=== PATIENT | male | born 1950 | race Caucasian/White ===

== ENCOUNTER → 2016-11-03 | Outpatient (CLI) | payer MEDICARE ==
[~2016-11-03] MED LIST: ASPI81TA21 PO; BENI40TA7 PO; BYST10TA PO; CHLO4TAB PO; CIPR500T89 PO; DOXA2TAB PO; FURO40TA2 PO; KLOR8TAB PO; PERCOCET PO; TYLE-18 PO
== END ==
LOC: M SMT 09:19
PROVIDERS: ATTEND Urology
DX: Z85.46 Personal history of malignant neoplasm of prostate (principal)

== ENCOUNTER → 2017-01-04 | Outpatient (CLI) | payer MEDICARE ==
[2017-01-04 09:53] LABS: MEAN CORPUSCULAR HEMOGLOBIN 31.9 pg (27.0-33.0); MEAN CORPUSCULAR HGB CONC 34.4 g/dl (32.0-36.5); MEAN CORPUSCULAR VOLUME 92.8 fl (80.0-96.0); RED CELL DISTRIBUTION WIDTH 12.5 % (11.5-14.5); WHITE BLOOD COUNT 6.8 K/mm3 (4.0-10.0)
[2017-01-04 10:29] LABS: ALBUMIN 3.7 GM/DL (3.2-5.2); ALBUMIN/GLOBULIN RATIO 1.12 (1.00-1.93); ALKALINE PHOSPHATASE 67 U/L (45-117); ALT/SGPT 39 U/L (12-78); ANION GAP 11 MEQ/L (8-16); AST/SGOT 22 U/L (15-37); BILIRUBIN,TOTAL 0.7 MG/DL (0.2-1.0); BLOOD UREA NITROGEN 18 MG/DL (7-18); CALCIUM LEVEL 8.6 MG/DL (8.8-10.2); CARBON DIOXIDE LEVEL 28 MEQ/L (21-32); CHLORIDE LEVEL 105 MEQ/L (98-107); CHOLESTEROL LEVEL 166 MG/DL (<200); CREATININE FOR GFR 1.04 MG/DL (0.70-1.30); GLOMERULAR FILTRATION RATE > 60.0 (>49); GLUCOSE, FASTING 93 MG/DL (80-110); SODIUM LEVEL 144 MEQ/L (136-145); THYROXINE (T4) 7.8 UG/DL (4.5-12.0); TRIGLYCERIDES LEVEL 261 MG/DL (<150)
--- NOTE | 2017-01-04 11:05 | REP ---
CHEST X-RAY: Two views. HISTORY: Fatigue. Shortness of breath. Comparison chest x-ray is from November 02, 2012. FINDINGS: The lungs are slightly hyperinflated but remain free of infiltrate. Pleural angles are sharp. Heart is mildly enlarged unchanged. Pulmonary vasculature is not increased. The aorta is slightly tortuous. There are degenerative changes again noted in the thoracic spine. IMPRESSION: Mild cardiomegaly and hyperinflation. Otherwise no acute disease. Signed by Everton Brown MD 01/04/2017 01:09 P
--- NOTE | 2017-01-05 00:33 | ECGEPIP ---
Stationary ECG Study [facility] Test Date: 2017-01-04 Pat Name: TARIK REA Department: Room: - Gender: M Auto Wash Buffer: MARCO ANTONIO : 1950 Requested By: Simon Willett Order Number: [id number] Reading MD: Jama Cruz Measurements Intervals [place] Rate: 63 P: -1 CT: 166 QRS: 5 QRSD: 106 T: 43 QT: 405 QTc: 417 Interpretive Statements SINUS RHYTHM COMPARED TO THE LAST 2 TRACINGS IN THE SYSTEM, NO SIGNIFICANT CHANGES Electronically Signed On 01-05-2017 0:33:42 EDT by Jama Cruz
== END ==
LOC: M LAB 09:10
PROVIDERS: ATTEND Family Medicine
DX: I10 Essential (primary) hypertension (principal); R53.83 Other fatigue

== ENCOUNTER → 2017-04-22 | Outpatient (CLI) | payer MEDICARE | LOC: M SMT 13:23 | PROVIDERS: ATTEND Urology | DX: Z85.46 Personal history of malignant neoplasm of prostate (principal) ==

== ENCOUNTER → 2017-06-09 | Outpatient (CLI) | payer MEDICARE ==
[2017-06-09 16:29] LABS: MEAN CORPUSCULAR HEMOGLOBIN 32.3 pg (27.0-33.0); MEAN CORPUSCULAR HGB CONC 34.9 g/dl (32.0-36.5); MEAN CORPUSCULAR VOLUME 92.6 fl (80.0-96.0); RED CELL DISTRIBUTION WIDTH 12.7 % (11.5-14.5); WHITE BLOOD COUNT 7.9 K/mm3 (4.0-10.0)
[2017-06-14 00:11] LABS: Lyme Disease IgG Ab 18 kDa Ban Present (.); Lyme Disease IgG Ab 23 kDa Ban Present (.); Lyme Disease IgG Ab 28 kDa Ban Absent (.); Lyme Disease IgG Ab 30 kDa Ban Absent (.); Lyme Disease IgG Ab 39 kDa Ban Absent (.); Lyme Disease IgG Ab 41 kDa Ban Present (.); Lyme Disease IgG Ab 45 kDa Ban Present (.); Lyme Disease IgG Ab 58 kDa Ban Absent (.); Lyme Disease IgG Ab 66 kDa Ban Present (.); Lyme Disease IgG Ab 93 kDa Ban Present (.); Lyme Disease IgG West Blot Int Positive (.); Lyme Disease IgG/IgM Antibodie 1.13 ISR (0.00-0.90); Lyme Disease IgM Ab 23 kDa Ban Present (.); Lyme Disease IgM Ab 39 kDa Ban Absent (.); Lyme Disease IgM Ab 41 kDa Ban Absent (.); Lyme Disease IgM Ab Quantitati 1.28 index (0.00-0.79); Lyme Disease IgM West Blot Int Negative (.)
== END ==
LOC: M SMT 11:09
PROVIDERS: ATTEND Family Medicine
DX: E11.9 Type 2 diabetes mellitus without complications (principal); R53.83 Other fatigue; M10.9 Gout, unspecified; Z11.8 Encounter for screening for other infectious and parasitic diseases; Z12.5 Encounter for screening for malignant neoplasm of prostate
CPT/HCPCS: 36415; 83036; 84443; 84550; 85027; 85652; 86617; G0103

== ENCOUNTER → 2017-11-01 | Outpatient (CLI) | payer MEDICARE ==
[2017-11-01 20:58] LABS: PROSTATIC SPECIFIC AG MONITOR < 0.01 NG/ML (< 4.0)
== END ==
LOC: M SMT 13:11
DX: Z85.46 Personal history of malignant neoplasm of prostate (principal)
CPT/HCPCS: 84153

== ENCOUNTER → 2018-08-12 | Outpatient (CLI) | payer MEDICARE ==
[2018-08-12 08:12] LABS: HEMATOCRIT 40.3 % (42.0-52.0); HEMOGLOBIN 13.5 g/dl (13.5-17.5); MEAN CORPUSCULAR HEMOGLOBIN 31.8 pg (27.0-33.0); MEAN CORPUSCULAR HGB CONC 33.5 g/dl (32.0-36.5); PLATELET COUNT, AUTOMATED 235 10^3/uL (150-450); RED BLOOD COUNT 4.24 10^6/uL (4.30-6.10); RED CELL DISTRIBUTION WIDTH 13.8 % (11.5-14.5); WHITE BLOOD COUNT 10.3 10^3/uL (4.0-10.0)
[2018-08-12 08:29] LABS: ESTIMATED AVERAGE GLUCOSE 105 MG/DL (60-110); HEMOGLOBIN A1c 5.3 %
[2018-08-12 08:44] LABS: ALBUMIN 3.9 GM/DL (3.2-5.2); ALKALINE PHOSPHATASE 67 U/L (45-117); ALT/SGPT 24 U/L (12-78); ANION GAP 7 MEQ/L (8-16); AST/SGOT 16 U/L (7-37); BILIRUBIN,TOTAL 0.7 MG/DL (0.2-1.0); BLOOD UREA NITROGEN 20 MG/DL (7-18); CALCIUM LEVEL 8.9 MG/DL (8.8-10.2); CARBON DIOXIDE LEVEL 33 MEQ/L (21-32); CHLORIDE LEVEL 102 MEQ/L (98-107); CHOLESTEROL LEVEL 181 MG/DL (<200); CHOLESTEROL RISK RATIO 5.027 (<5); CREATININE FOR GFR 1.72 MG/DL (0.70-1.30); GLOMERULAR FILTRATION RATE 42.3 (>49); GLUCOSE, FASTING 99 MG/DL (70-100); HDL CHOLESTEROL 36 MG/DL (>40); LDL CHOLESTEROL 104 MG/DL (<100); NON-HDL-C 145 MG/DL; POTASSIUM SERUM 3.8 MEQ/L (3.5-5.1); PROSTATIC SPECIFIC AG MONITOR < 0.01 NG/ML (< 4.0); SODIUM LEVEL 142 MEQ/L (136-145); TOTAL PROTEIN 6.9 GM/DL (6.4-8.2); TRIGLYCERIDES LEVEL 206 MG/DL (<150)
[2018-08-14 10:07] LABS: TESTOSTERONE 387 NG/DL (241-827); TOTAL 25(OH) VITAMIN D 22.4 NG/ML (30.0-100.0)
== END ==
LOC: M LAB 07:39
DX: R53.83 Other fatigue (principal); I50.9 Heart failure, unspecified; I11.0 Hypertensive heart disease with heart failure; R91.8 Other nonspecific abnormal finding of lung field; Z79.899 Other long term (current) drug therapy
CPT/HCPCS: 71046

== ENCOUNTER 2018-10-05 10:50 | Inpatient (IN) | payer MEDICARE ==
[2018-10-05 11:39] LABS: BASO # 0.1 10^3/uL (0.0-0.2); BASO % 0.5 % (0.0-1.0); EOS # 0.2 10^3/uL (0.0-0.50); EOS % 2.2 % (0.0-3.0); HEMATOCRIT 41.3 % (42.0-52.0); HEMOGLOBIN 13.8 g/dl (13.5-17.5); IMMATURE GRANULOCYTE % 0.4 % (0-3.0); LYMPH # 2.1 10^3/uL (1.5-4.5); LYMPH % 19.9 % (24.0-44.0); MEAN CORPUSCULAR HEMOGLOBIN 31.9 pg (27.0-33.0); MEAN CORPUSCULAR HGB CONC 33.4 g/dl (32.0-36.5); MEAN CORPUSCULAR VOLUME 95.4 fl (80.0-96.0); MONO # 0.7 10^3/uL (0.0-0.8); NEUTROPHILS # 7.2 10^3/uL (1.8-7.7); PLATELET COUNT, AUTOMATED 213 10^3/uL (150-450); RED BLOOD COUNT 4.33 10^6/uL (4.30-6.10); RED CELL DISTRIBUTION WIDTH 13.5 % (11.5-14.5); WHITE BLOOD COUNT 10.3 10^3/uL (4.0-10.0)
[2018-10-05 11:50] LABS: INR 0.99; PROTHROMBIN TIME 13.2 SECONDS (12.1-14.4)
[2018-10-05 12:26] LABS: ALBUMIN 3.8 GM/DL (3.2-5.2); ALBUMIN/GLOBULIN RATIO 1.19 (1.00-1.93); ALKALINE PHOSPHATASE 72 U/L (45-117); ALT/SGPT 25 U/L (12-78); ANION GAP 8 MEQ/L (8-16); AST/SGOT 17 U/L (7-37); BILIRUBIN,DIRECT 0.2 MG/DL (0.0-0.2); BILIRUBIN,TOTAL 0.8 MG/DL (0.2-1.0); BLOOD UREA NITROGEN 21 MG/DL (7-18); CALCIUM LEVEL 8.6 MG/DL (8.8-10.2); CARBON DIOXIDE LEVEL 30 MEQ/L (21-32); CHLORIDE LEVEL 104 MEQ/L (98-107); CK-MB VALUE MASS < 1.0 NG/ML (<3.6); CPK CREATINE PHOSPHOKINASE 48 U/L (39-308); CREATININE FOR GFR 1.68 MG/DL (0.70-1.30); GLOMERULAR FILTRATION RATE 43.5 (>49); GLUCOSE, FASTING 86 MG/DL (70-100); MB/CK RELATIVE INDEX 2.08 (< OR =4); NT-PRO BNP 31 PG/ML (<125); POTASSIUM SERUM 3.6 MEQ/L (3.5-5.1); SODIUM LEVEL 142 MEQ/L (136-145); TROPONIN I < 0.02 NG/ML (< 0.10)
[2018-10-05] MEDS: NS 1,000 ML IV (12:27)
[2018-10-05 12:54] LABS: ABG BASE EXCESS 3.4 (-2.0-2.0); ABG HCO3 28.1 MEQ/L (22.0-26.0); ABG O2 SATURATION 94.1 % (95.0-99.0); ABG PARTIAL PRESSURE CO2 43.1 mmHg (35.0-45.0); ABG PARTIAL PRESSURE O2 70.5 mmHg (75.0-100.0); ABG STANDARD HCO3 27.4 MEQ/L (22.0-26.0); ABG TOTAL CO2 29.4 MEQ/L (23.0-31.0); ABG pH (ARTERIAL) 7.432 UNITS (7.350-7.450)
[2018-10-05 13:06] LABS: KETONE, URINE AUTO RFX NEGATIVE (NEGATIVE); LEUKOCYTE ESTERASE UR AUTO RFX 1+ (NEGATIVE); NITRITE, URINE AUTO RFX NEGATIVE (NEGATIVE); RBC, URINE AUTO RFX 1 /HPF (0-3); SPECIFIC GRAVITY UR AUTO RFX 1.013 (1.002-1.035); SQUAM EPITHELIAL CELL UR AURFX 1 /HPF (0-6); WBC, URINE AUTO RFX 2 /HPF (0-3)
[2018-10-05] MEDS ORDERED: ACETAMINOPHEN TAB 650MG DOSE (2X325MG) PO (15:15)
[2018-10-05] MEDS ORDERED: ONDANSETRON 4MG/2ML VIAL (J2405) IV (15:15)
[2018-10-05] MEDS ORDERED: ALBUTEROL SULFATE 2.5 MG/0.5 ML INH NEB SOLN INH (15:15)
[2018-10-05 15:27] LABS: D-DIMER QUANT 561.65 ng/ml (<500)
[2018-10-05] MEDS: IPRATROPIUM 0.5MG/ALBUTEROL 2.5MG INH SOL UD 3ML (DUONEB)(J7620) NEB ×2 (16:27→20:00)
[2018-10-05] MEDS: rOPINIRole 1MG TAB PO ×2 (17:00→20:33)
[2018-10-05 17:26] LABS: CHLORIDE,RANDOM URINE < 10 MEQ/L
[2018-10-05 17:26] LABS: SODIUM,RANDOM URINE < 10 MEQ/L
[2018-10-05] MEDS: methylPREDNISolone INJ 40 MG/1 ML VIAL (J2920) IV ×2 (17:29→21:08)
[2018-10-05] MEDS: D5W/0.9% SODIUM CHLORIDE 1,000 ML IV (18:25)
[2018-10-05 18:59] LABS: CK-MB VALUE MASS < 1.0 NG/ML (<3.6); CPK CREATINE PHOSPHOKINASE 43 U/L (39-308); MB/CK RELATIVE INDEX 2.33 (< OR =4); TROPONIN I < 0.02 NG/ML (< 0.10)
[2018-10-05] MEDS: ALPRAZolam 0.5 MG TAB PO ×2 (19:33→21:56)
[2018-10-05] MEDS: FLUoxetine 20 MG CAP PO (20:33)
[2018-10-05] MEDS: CARVedilol 12.5 MG TAB PO (20:33)
[2018-10-05] MEDS: HEPARIN SOD (PORCINE) 5000 UNITS/ML VIAL SC (21:08)
[2018-10-06 00:27] LABS: BEDSIDE GLUCOSE 182 MG/DL (80-115)
[2018-10-06] MEDS: LORazepam 2 MG/ML VIAL (J2060) IV ×3 (01:00→21:41)
[2018-10-06] MEDS: MAG SULF 1GM/100ML (MAG RUN) 1 GM in APPROPRIATE DILUENT 1 EA IV ×2 (01:11→02:40)
[2018-10-06] MEDS: levETIRAcetam INJection 1,000 MG in D5W 100 ML IV ×2 (01:42→13:11)
[2018-10-06] MEDS: IPRATROPIUM 0.5MG/ALBUTEROL 2.5MG INH SOL UD 3ML (DUONEB)(J7620) NEB ×6 (03:45→20:00)
[2018-10-06] MEDS: methylPREDNISolone INJ 40 MG/1 ML VIAL (J2920) IV ×4 (04:26→21:39)
[2018-10-06] MEDS: HEPARIN SOD (PORCINE) 5000 UNITS/ML VIAL SC ×3 (05:36→21:39)
[2018-10-06 05:45] LABS: BASO % 0.1 % (0.0-1.0); HEMATOCRIT 37.4 % (42.0-52.0); HEMOGLOBIN 12.8 g/dl (13.5-17.5); IMMATURE GRANULOCYTE % 0.5 % (0-3.0); LYMPH # 0.8 10^3/uL (1.5-4.5); LYMPH % 8.6 % (24.0-44.0); MEAN CORPUSCULAR HEMOGLOBIN 32.2 pg (27.0-33.0); MEAN CORPUSCULAR HGB CONC 34.2 g/dl (32.0-36.5); MONO # 0.1 10^3/uL (0.0-0.8); MONO % 0.6 % (0.0-5.0); NEUTROPHILS # 8.5 10^3/uL (1.8-7.7); NEUTROPHILS % 90.2 % (36.0-66.0); PLATELET COUNT, AUTOMATED 207 10^3/uL (150-450); RED BLOOD COUNT 3.98 10^6/uL (4.30-6.10); RED CELL DISTRIBUTION WIDTH 13.6 % (11.5-14.5); WHITE BLOOD COUNT 9.5 10^3/uL (4.0-10.0)
[2018-10-06 06:01] LABS: AMMONIA 15 uMOL/L (<32)
[2018-10-06] MEDS: D5W/0.9% SODIUM CHLORIDE 1,000 ML IV (06:13)
[2018-10-06 07:41] LABS: ANION GAP 9 MEQ/L (8-16); BLOOD UREA NITROGEN 19 MG/DL (7-18); CALCIUM LEVEL 8.9 MG/DL (8.8-10.2); CARBON DIOXIDE LEVEL 27 MEQ/L (21-32); CHLORIDE LEVEL 105 MEQ/L (98-107); CK-MB VALUE MASS < 1.0 NG/ML (<3.6); CPK CREATINE PHOSPHOKINASE 46 U/L (39-308); CREATININE FOR GFR 1.51 MG/DL (0.70-1.30); GLUCOSE, FASTING 180 MG/DL (70-100); MAGNESIUM LEVEL 2.6 MG/DL (1.8-2.4); MB/CK RELATIVE INDEX 2.17 (< OR =4); POTASSIUM SERUM 3.6 MEQ/L (3.5-5.1); SODIUM LEVEL 141 MEQ/L (136-145)
[2018-10-06] MEDS ORDERED: ISOVUE-370 76% 100ML VIAL (Q9967) As Ordered (07:57)
[2018-10-06 08:02] LABS: TROPONIN I < 0.02 NG/ML (< 0.10)
[2018-10-06] MEDS: VITAMIN D 1,000 INTERNATIONAL UNITS TABLET PO (10:20)
[2018-10-06] MEDS: FLUoxetine 20 MG CAP PO ×2 (10:21→21:40)
[2018-10-06] MEDS: CARVedilol 12.5 MG TAB PO ×2 (10:21→21:40)
[2018-10-06] MEDS: ALLOPURINOL 300 MG TAB PO (10:21)
[2018-10-06] MEDS: rOPINIRole 1MG TAB PO ×4 (10:21→21:40)
[2018-10-06] MEDS: MONTELUKAST 10 MG TAB PO (10:21)
[2018-10-06 11:16] LABS: VITAMIN B12 LEVEL 484 PG/ML (247-911)
[2018-10-07] MEDS: levETIRAcetam INJection 1,000 MG in D5W 100 ML IV ×2 (00:17→15:55)
[2018-10-07] MEDS: IPRATROPIUM 0.5MG/ALBUTEROL 2.5MG INH SOL UD 3ML (DUONEB)(J7620) NEB ×6 (00:18→19:43)
[2018-10-07] MEDS: HEPARIN SOD (PORCINE) 5000 UNITS/ML VIAL SC ×3 (05:04→22:13)
[2018-10-07] MEDS: methylPREDNISolone INJ 40 MG/1 ML VIAL (J2920) IV ×2 (05:04→10:13)
[2018-10-07] MEDS: rOPINIRole 1MG TAB PO ×4 (08:40→22:13)
[2018-10-07] MEDS: FLUoxetine 20 MG CAP PO ×2 (08:40→22:14)
[2018-10-07] MEDS: MONTELUKAST 10 MG TAB PO (08:41)
[2018-10-07] MEDS: VITAMIN D 1,000 INTERNATIONAL UNITS TABLET PO (08:41)
[2018-10-07] MEDS: ALLOPURINOL 300 MG TAB PO (08:41)
[2018-10-07] MEDS: CARVedilol 12.5 MG TAB PO ×2 (08:41→22:14)
[2018-10-07 09:47] LABS: BASO % 0.1 % (0.0-1.0); HEMOGLOBIN 12.6 g/dl (13.5-17.5); IMMATURE GRANULOCYTE % 1.2 % (0-3.0); LYMPH # 0.8 10^3/uL (1.5-4.5); MEAN CORPUSCULAR HEMOGLOBIN 32.8 pg (27.0-33.0); MEAN CORPUSCULAR HGB CONC 34.1 g/dl (32.0-36.5); MEAN CORPUSCULAR VOLUME 96.4 fl (80.0-96.0); MONO # 0.5 10^3/uL (0.0-0.8); MONO % 1.7 % (0.0-5.0); PLATELET COUNT, AUTOMATED 199 10^3/uL (150-450); RED BLOOD COUNT 3.84 10^6/uL (4.30-6.10); RED CELL DISTRIBUTION WIDTH 13.5 % (11.5-14.5); WHITE BLOOD COUNT 28.2 10^3/uL (4.0-10.0)
[2018-10-07 10:02] LABS: NEUTROPHILS # 26.6 10^3/uL (1.8-7.7); POSITIVE DIFF POS FLAG
[2018-10-07 10:27] LABS: ALBUMIN 3.2 GM/DL (3.2-5.2); ALKALINE PHOSPHATASE 61 U/L (45-117); ALT/SGPT 21 U/L (12-78); ANION GAP 13 MEQ/L (8-16); AST/SGOT 12 U/L (7-37); BILIRUBIN,DIRECT 0.1 MG/DL (0.0-0.2); BILIRUBIN,TOTAL 0.4 MG/DL (0.2-1.0); BLOOD UREA NITROGEN 23 MG/DL (7-18); C REACTIVE PROTEIN QUANTITATIV < 0.30 MG/DL (0.00-0.30); CALCIUM LEVEL 8.8 MG/DL (8.8-10.2); CARBON DIOXIDE LEVEL 24 MEQ/L (21-32); CHLORIDE LEVEL 107 MEQ/L (98-107); CREATININE FOR GFR 1.48 MG/DL (0.70-1.30); GLOMERULAR FILTRATION RATE 50.2 (>49); GLUCOSE, FASTING 129 MG/DL (70-100); POTASSIUM SERUM 3.7 MEQ/L (3.5-5.1); SODIUM LEVEL 144 MEQ/L (136-145); TOTAL PROTEIN 6.1 GM/DL (6.4-8.2)
[2018-10-07 10:28] LABS: ERYTHROCYTE SEDIMENTATION RATE 15 mm/hr (0-20)
[2018-10-07 16:25] LABS: ABG BASE EXCESS -0.7 (-2.0-2.0); ABG HCO3 24.3 MEQ/L (22.0-26.0); ABG O2 SATURATION 96.2 % (95.0-99.0); ABG PARTIAL PRESSURE CO2 41.8 mmHg (35.0-45.0); ABG PARTIAL PRESSURE O2 80.5 mmHg (75.0-100.0); ABG STANDARD HCO3 23.8 MEQ/L (22.0-26.0); ABG TOTAL CO2 25.6 MEQ/L (23.0-31.0); ABG pH (ARTERIAL) 7.383 UNITS (7.350-7.450)
[2018-10-07 16:44] LABS: C REACTIVE PROTEIN QUANTITATIV < 0.30 MG/DL (0.00-0.30)
[2018-10-07 16:52] LABS: ERYTHROCYTE SEDIMENTATION RATE 10 mm/hr (0-20)
[2018-10-07 16:57] LABS: AMMONIA 14 uMOL/L (<32)
[2018-10-08] MEDS: IPRATROPIUM 0.5MG/ALBUTEROL 2.5MG INH SOL UD 3ML (DUONEB)(J7620) NEB ×6 (03:50→21:03)
[2018-10-08 05:09] LABS: BASO % 0.1 % (0.0-1.0); HEMATOCRIT 36.1 % (42.0-52.0); IMMATURE GRANULOCYTE % 1.3 % (0-3.0); LYMPH # 0.9 10^3/uL (1.5-4.5); LYMPH % 3.2 % (24.0-44.0); MEAN CORPUSCULAR HGB CONC 33.2 g/dl (32.0-36.5); MEAN CORPUSCULAR VOLUME 96.3 fl (80.0-96.0); MONO # 1.1 10^3/uL (0.0-0.8); MONO % 4.1 % (0.0-5.0); NEUTROPHILS # 24.4 10^3/uL (1.8-7.7); NEUTROPHILS % 91.3 % (36.0-66.0); PLATELET COUNT, AUTOMATED 199 10^3/uL (150-450); RED BLOOD COUNT 3.75 10^6/uL (4.30-6.10); RED CELL DISTRIBUTION WIDTH 13.4 % (11.5-14.5); WHITE BLOOD COUNT 26.7 10^3/uL (4.0-10.0)
[2018-10-08 05:25] LABS: ANION GAP 7 MEQ/L (8-16); BLOOD UREA NITROGEN 26 MG/DL (7-18); CALCIUM LEVEL 8.5 MG/DL (8.8-10.2); CARBON DIOXIDE LEVEL 29 MEQ/L (21-32); CHLORIDE LEVEL 106 MEQ/L (98-107); CREATININE FOR GFR 1.39 MG/DL (0.70-1.30); GLOMERULAR FILTRATION RATE 53.9 (>49); GLUCOSE, FASTING 124 MG/DL (70-100); POTASSIUM SERUM 3.5 MEQ/L (3.5-5.1); SODIUM LEVEL 142 MEQ/L (136-145)
[2018-10-08] MEDS: HEPARIN SOD (PORCINE) 5000 UNITS/ML VIAL SC ×3 (05:47→21:26)
[2018-10-08 07:41] LABS: C REACTIVE PROTEIN QUANTITATIV < 0.30 MG/DL (0.00-0.30)
[2018-10-08 08:34] LABS: ERYTHROCYTE SEDIMENTATION RATE 8 mm/hr (0-20)
[2018-10-08] MEDS: levETIRAcetam 250MG TABLET (KEPPRA) PO (09:02)
[2018-10-08] MEDS: MONTELUKAST 10 MG TAB PO (09:02)
[2018-10-08] MEDS: VITAMIN D 1,000 INTERNATIONAL UNITS TABLET PO (09:02)
[2018-10-08] MEDS: ALLOPURINOL 300 MG TAB PO (09:03)
[2018-10-08] MEDS: predniSONE 20 MG TAB PO (09:03)
[2018-10-08] MEDS: CARVedilol 12.5 MG TAB PO ×2 (09:03→21:26)
[2018-10-08] MEDS: rOPINIRole 1MG TAB PO (09:03)
[2018-10-08] MEDS: FLUoxetine 20 MG CAP PO (09:03)
[2018-10-08 12:59] LABS: ABG BASE EXCESS 2.8 (-2.0-2.0); ABG HCO3 27.7 MEQ/L (22.0-26.0); ABG O2 SATURATION 96.6 % (95.0-99.0); ABG PARTIAL PRESSURE CO2 43.9 mmHg (35.0-45.0); ABG PARTIAL PRESSURE O2 84.2 mmHg (75.0-100.0); ABG STANDARD HCO3 26.9 MEQ/L (22.0-26.0); ABG TOTAL CO2 29.1 MEQ/L (23.0-31.0); ABG pH (ARTERIAL) 7.418 UNITS (7.350-7.450)
[2018-10-08] MEDS: NITROGLYCERIN 2% OINT 1 GM *U/D* PKT TOP (13:16)
[2018-10-09] MEDS: IPRATROPIUM 0.5MG/ALBUTEROL 2.5MG INH SOL UD 3ML (DUONEB)(J7620) NEB ×6 (04:00→15:36)
[2018-10-09 05:45] LABS: BASO % 0.1 % (0.0-1.0); HEMATOCRIT 36.4 % (42.0-52.0); HEMOGLOBIN 12.1 g/dl (13.5-17.5); IMMATURE GRANULOCYTE % 1.1 % (0-3.0); LYMPH # 1.5 10^3/uL (1.5-4.5); LYMPH % 8.7 % (24.0-44.0); MEAN CORPUSCULAR HEMOGLOBIN 31.9 pg (27.0-33.0); MEAN CORPUSCULAR HGB CONC 33.2 g/dl (32.0-36.5); MONO # 1.1 10^3/uL (0.0-0.8); MONO % 6.5 % (0.0-5.0); NEUTROPHILS # 14.2 10^3/uL (1.8-7.7); NEUTROPHILS % 83.6 % (36.0-66.0); PLATELET COUNT, AUTOMATED 182 10^3/uL (150-450); RED BLOOD COUNT 3.79 10^6/uL (4.30-6.10); RED CELL DISTRIBUTION WIDTH 13.6 % (11.5-14.5)
[2018-10-09] MEDS: HEPARIN SOD (PORCINE) 5000 UNITS/ML VIAL SC ×3 (05:45→21:16)
[2018-10-09 06:03] LABS: ANION GAP 6 MEQ/L (8-16); BLOOD UREA NITROGEN 24 MG/DL (7-18); CALCIUM LEVEL 8.6 MG/DL (8.8-10.2); CARBON DIOXIDE LEVEL 30 MEQ/L (21-32); CHLORIDE LEVEL 106 MEQ/L (98-107); CREATININE FOR GFR 1.25 MG/DL (0.70-1.30); GLOMERULAR FILTRATION RATE > 60.0 (>49); GLUCOSE, FASTING 90 MG/DL (70-100); POTASSIUM SERUM 3.3 MEQ/L (3.5-5.1); SODIUM LEVEL 142 MEQ/L (136-145)
[2018-10-09] MEDS: POTASSIUM CHLORIDE 10 MEQ SR TABLET PO (08:54)
[2018-10-09] MEDS: VITAMIN D 1,000 INTERNATIONAL UNITS TABLET PO (08:54)
[2018-10-09] MEDS: ALLOPURINOL 300 MG TAB PO (08:55)
[2018-10-09] MEDS: predniSONE 20 MG TAB PO (08:55)
[2018-10-09] MEDS: MONTELUKAST 10 MG TAB PO (08:55)
[2018-10-09] MEDS: CARVedilol 12.5 MG TAB PO ×2 (08:55→21:16)
[2018-10-09] MEDS: amLODIPine 10 MG TAB PO (08:55)
[2018-10-09] MEDS: NITROGLYCERIN 2% OINT 1 GM *U/D* PKT TOP (08:56)
[2018-10-09] MEDS: rOPINIRole 1MG TAB PO (23:52)
[2018-10-10 00:07] LABS: Lyme Disease IgG Ab 18 kDa Ban Absent (.); Lyme Disease IgG Ab 23 kDa Ban Present (.); Lyme Disease IgG Ab 28 kDa Ban Absent (.); Lyme Disease IgG Ab 30 kDa Ban Absent (.); Lyme Disease IgG Ab 39 kDa Ban Absent (.); Lyme Disease IgG Ab 41 kDa Ban Absent (.); Lyme Disease IgG Ab 45 kDa Ban Absent (.); Lyme Disease IgG Ab 58 kDa Ban Absent (.); Lyme Disease IgG Ab 66 kDa Ban Absent (.); Lyme Disease IgG Ab 93 kDa Ban Absent (.); Lyme Disease IgG West Blot Int Negative (.); Lyme Disease IgG/IgM Antibodie 1.64 ISR (0.00-0.90); Lyme Disease IgM Ab 23 kDa Ban Present (.); Lyme Disease IgM Ab 39 kDa Ban Absent (.); Lyme Disease IgM Ab 41 kDa Ban Absent (.); Lyme Disease IgM Ab Quantitati <0.80 index (0.00-0.79); Lyme Disease IgM West Blot Int Negative (.)
[2018-10-10] MEDS: IPRATROPIUM 0.5MG/ALBUTEROL 2.5MG INH SOL UD 3ML (DUONEB)(J7620) NEB ×3 (00:57→08:11)
[2018-10-10] MEDS: HEPARIN SOD (PORCINE) 5000 UNITS/ML VIAL SC (05:30)
[2018-10-10 06:50] LABS: BASO % 0.3 % (0.0-1.0); EOS # 0.1 10^3/uL (0.0-0.50); EOS % 0.5 % (0.0-3.0); HEMATOCRIT 37.4 % (42.0-52.0); HEMOGLOBIN 12.6 g/dl (13.5-17.5); IMMATURE GRANULOCYTE % 1.7 % (0-3.0); LYMPH # 2.2 10^3/uL (1.5-4.5); LYMPH % 15.5 % (24.0-44.0); MEAN CORPUSCULAR HEMOGLOBIN 31.8 pg (27.0-33.0); MEAN CORPUSCULAR HGB CONC 33.7 g/dl (32.0-36.5); MEAN CORPUSCULAR VOLUME 94.4 fl (80.0-96.0); MONO # 1.2 10^3/uL (0.0-0.8); MONO % 8.4 % (0.0-5.0); NEUTROPHILS # 10.4 10^3/uL (1.8-7.7); NEUTROPHILS % 73.6 % (36.0-66.0); PLATELET COUNT, AUTOMATED 203 10^3/uL (150-450); RED BLOOD COUNT 3.96 10^6/uL (4.30-6.10); RED CELL DISTRIBUTION WIDTH 13.6 % (11.5-14.5); WHITE BLOOD COUNT 14.2 10^3/uL (4.0-10.0)
[2018-10-10 07:13] LABS: ANION GAP 9 MEQ/L (8-16); BLOOD UREA NITROGEN 26 MG/DL (7-18); CALCIUM LEVEL 9.1 MG/DL (8.8-10.2); CARBON DIOXIDE LEVEL 27 MEQ/L (21-32); CHLORIDE LEVEL 105 MEQ/L (98-107); CREATININE FOR GFR 1.29 MG/DL (0.70-1.30); GLOMERULAR FILTRATION RATE 58.8 (>49); GLUCOSE, FASTING 81 MG/DL (70-100); POTASSIUM SERUM 3.5 MEQ/L (3.5-5.1); SODIUM LEVEL 141 MEQ/L (136-145)
[2018-10-10] MEDS: NITROGLYCERIN 2% OINT 1 GM *U/D* PKT TOP (08:15)
[2018-10-10] MEDS: VITAMIN D 1,000 INTERNATIONAL UNITS TABLET PO (08:15)
[2018-10-10] MEDS: MONTELUKAST 10 MG TAB PO (08:15)
[2018-10-10] MEDS: CARVedilol 12.5 MG TAB PO (08:16)
[2018-10-10] MEDS: amLODIPine 10 MG TAB PO (08:16)
[2018-10-10] MEDS: predniSONE 20 MG TAB PO (08:17)
[2018-10-10] MEDS: ALLOPURINOL 300 MG TAB PO (08:17)
[2018-10-10 14:17] LABS: ANTINUCLEAR ANTIBODIES DIRECT Negative (Negative)
[2018-10-12 14:15] LABS: LEVETIRACETAM (KEPPRA) 42.4 ug/mL (10.0-40.0)
== END 2018-10-10 12:14 | disposition home or self-care (01) | DRG 92 ==
LOC: M ED 10:50 → M MSPAV 10-08 17:05 → M ED INP 15:11 → M PCU 18:35
DX: G92 Toxic encephalopathy (principal); N17.9 Acute kidney failure, unspecified; R56.9 Unspecified convulsions; R06.00 Dyspnea, unspecified; R63.4 Abnormal weight loss; N18.9 Chronic kidney disease, unspecified; E66.01 Morbid (severe) obesity due to excess calories; I12.9 Hypertensive chronic kidney disease with stage 1 through stage 4 chronic kidney disease, or unspecified chronic kidney disease; D72.829 Elevated white blood cell count, unspecified; G25.81 Restless legs syndrome; Z85.46 Personal history of malignant neoplasm of prostate; J44.9 Chronic obstructive pulmonary disease, unspecified; M43.04 Spondylolysis, thoracic region; Z79.899 Other long term (current) drug therapy; Z88.8 Allergy status to other drugs, medicaments and biological substances; I95.1 Orthostatic hypotension; T42.6X5A Adverse effect of other antiepileptic and sedative-hypnotic drugs, initial encounter

== ENCOUNTER 2018-10-12 21:02 | Emergency (ER) | payer MEDICARE ==
[2018-10-12] MEDS: chlorproMAZINE 25 MG TAB (Q0161) PO (23:51)
== END 2018-10-12 23:56 | disposition home or self-care (01) ==
LOC: M ED 21:02
DX: R25.1 Tremor, unspecified (principal); G47.00 Insomnia, unspecified; I10 Essential (primary) hypertension; J44.9 Chronic obstructive pulmonary disease, unspecified
CPT/HCPCS: Q0161

== ENCOUNTER → 2019-03-05 | Outpatient (CLI) | payer MEDICARE ==
[~2019-03-05] MED LIST changes: +APAP500T10 PO; +ASPI81CH33 PO; +CARV12.5 PO; +DOXA2TAB3 PO; +FLUO20CA8 PO; +GABA-845 PO; +HYDR50TA70 PO; +MOBI4TAB PO; +MONT10TA2 PO; +OXYC1TAB23 PO; -PERCOCET PO; +POTA1TAB21 PO; +ROPI1TAB PO; +STOO100C PO; +TORS100T PO; +VITA100054 PO; +ZYLO300T6 PO
[2019-03-05 08:59] LABS: HEMATOCRIT 43.4 % (42.0-52.0); HEMOGLOBIN 14.2 g/dl (13.5-17.5); MEAN CORPUSCULAR HGB CONC 32.7 g/dl (32.0-36.5); MEAN CORPUSCULAR VOLUME 91.8 fl (80.0-96.0); PLATELET COUNT, AUTOMATED 209 10^3/uL (150-450); RED BLOOD COUNT 4.73 10^6/uL (4.30-6.10); WHITE BLOOD COUNT 9.6 10^3/uL (4.0-10.0)
[2019-03-05 09:40] LABS: ERYTHROCYTE SEDIMENTATION RATE 17 mm/hr (0-20)
[2019-03-05 09:52] LABS: ALBUMIN 3.9 GM/DL (3.2-5.2); BILIRUBIN,TOTAL 0.5 MG/DL (0.2-1.0); CALCIUM LEVEL 9.4 MG/DL (8.8-10.2); CREATININE FOR GFR 1.54 MG/DL (0.70-1.30); GLOMERULAR FILTRATION RATE 47.9 (>49); POTASSIUM SERUM 3.9 MEQ/L (3.5-5.1); TOTAL PROTEIN 6.8 GM/DL (6.4-8.2)
[2019-03-05 10:25] LABS: PROTHROMBIN TIME 13.4 SECONDS (12.1-14.4)
[2019-03-05 10:26] LABS: INR 1.01
--- NOTE | 2019-03-06 03:15 | REP ---
Clinical: Preoperative assessment. Technique: PA and lateral. Comparison: 10/05/2018. Findings: Mediastinum and cardiac silhouette are within normal limits. Airway is patent and midline. Lung esteban are relatively clear and without acute consolidation, effusion, or pneumothorax. Skeletal structures are intact. Impression: No acute cardiopulmonary process appreciated. Electronically Signed by Frankie Salas MD 03/06/2019 03:07 A
== END ==
LOC: M LAB 08:18
PROVIDERS: ATTEND Orthopaedic Surgery
DX: M16.12 Unilateral primary osteoarthritis, left hip (principal)

== ENCOUNTER → 2019-03-05 | Outpatient (CLI) | payer MEDICARE ==
[2019-03-05 08:59] LABS: HEMATOCRIT 42.5 % (42.0-52.0); MEAN CORPUSCULAR HEMOGLOBIN 29.7 pg (27.0-33.0); MEAN CORPUSCULAR HGB CONC 32.9 g/dl (32.0-36.5); PLATELET COUNT, AUTOMATED 219 10^3/uL (150-450); RED BLOOD COUNT 4.72 10^6/uL (4.30-6.10); WHITE BLOOD COUNT 10.1 10^3/uL (4.0-10.0)
[2019-03-05 09:32] LABS: ALBUMIN 3.9 GM/DL (3.2-5.2); ALT/SGPT 20 U/L (12-78); BILIRUBIN,TOTAL 0.5 MG/DL (0.2-1.0); BLOOD UREA NITROGEN 25 MG/DL (7-18); CALCIUM LEVEL 9.3 MG/DL (8.8-10.2); CARBON DIOXIDE LEVEL 31 MEQ/L (21-32); CHLORIDE LEVEL 105 MEQ/L (98-107); CHOLESTEROL LEVEL 199 MG/DL (<200); CHOLESTEROL RISK RATIO 5.236 (<5); CREATININE FOR GFR 1.54 MG/DL (0.70-1.30); GLOMERULAR FILTRATION RATE 47.9 (>49); GLUCOSE, FASTING 92 MG/DL (70-100); HDL CHOLESTEROL 38 MG/DL (>40); LDL CHOLESTEROL 119 MG/DL (<100); NON-HDL-C 161 MG/DL; POTASSIUM SERUM 3.9 MEQ/L (3.5-5.1); PROSTATIC SPECIFIC AG MONITOR < 0.01 NG/ML (< 4.00); SODIUM LEVEL 142 MEQ/L (136-145); TOTAL PROTEIN 6.8 GM/DL (6.4-8.2); TRIGLYCERIDES LEVEL 208 MG/DL (<150)
[2019-03-05 09:40] LABS: ERYTHROCYTE SEDIMENTATION RATE 27 mm/hr (0-20)
[2019-03-05 09:42] LABS: INR 1.01; PROTHROMBIN TIME 13.4 SECONDS (12.1-14.4)
[2019-03-05 10:34] LABS: HEMOGLOBIN A1c 5.6 %
--- NOTE | 2019-03-05 18:46 | ECGEPIP ---
Stationary ECG Study [facility] Test Date: 2019-03-05 Pat Name: TARIK REA Department: Room: - Gender: M Hand Finisher: CEDRICK : 1950 Requested By: Simon Willett Order Number: [id number] Reading MD: Jenna Garcia Measurements Intervals [place] Rate: 53 P: 9 MT: 219 QRS: 3 QRSD: 95 T: 28 QT: 438 QTc: 415 Interpretive Statements SINUS BRADYCARDIA WITH FIRST DEGREE AV BLOCK FIRST DEGREE AV BLOCK IS NEW SINCE 10/05/18 Electronically Signed On 03-05-2019 18:46:42 EDT by Jenna Garcia
== END ==
LOC: M LAB 08:11
PROVIDERS: ATTEND Family Medicine
DX: Z01.818 Encounter for other preprocedural examination (principal); I10 Essential (primary) hypertension; M16.12 Unilateral primary osteoarthritis, left hip

== ENCOUNTER 2019-03-14 05:41 | Inpatient (IN) | payer MEDICARE ==
--- NOTE | 2019-03-13 16:30 | HPE ---
DATE OF ADMISSION: 03/14/2019 CONSULTING PHYSICIAN: Dr. Vega CHIEF COMPLAINT: End-stage osteoarthritis, left hip. HISTORY: This is a pleasant 68-year-old male patient with progressively worsening left hip pain and stiffness. He has failed to improve with conservative management, to include physical therapy and activity modification. He has pain with weightbearing activities and activities of daily living. He has elected for surgery for his continued symptoms. He consented for a left total hip arthroplasty by Dr. Vega. X-rays notable for end-stage degenerative changes of his left hip. Medical optimization by Dr. Webb. ALLERGIES: NEOMYCIN. CURRENT MEDICATIONS: - acetaminophen 500 mg two tablets twice a day - allopurinol 300 mg one tablet once per day - aspirin 81 mg one tablet once per day. Discontinued that 5 days ago. - carvedilol 12.5 mg one tablet twice a day - Colace 100 mg one tablet once per day - doxazosin 2 mg one tablet once per day - gabapentin 400 mg one tablet three times a day - hydralazine 50 mg one tablet once per day - montelukast sodium 10 mg one tablet daily - potassium 8 mEq one tablet twice a day - torsemide 100 mg half tablet daily - vitamin D 1000 units two tablets in the morning MEDICAL HISTORY: 1. Hypertension. 2. Chronic obstructive pulmonary disease (COPD). 3. History of Lyme disease. 4. Essential tremor. 5. End-stage osteoarthritis of the left hip. SURGICAL HISTORY: 1. Removal of prostate. 2. Fractured ankle. 3. Appendectomy. FAMILY HISTORY: Arthritis, heart disease. SOCIAL HISTORY: He does not smoke. He does not use alcohol. REVIEW OF SYSTEMS: Denies fevers or chills. Denies chest pain, shortness of breath, or cough. Denies difficulty breathing. Denies abdominal pain. Denies nausea or vomiting. Has persistent pain in his left hip. Pain with weightbearing activities. PHYSICAL EXAMINATION: Today reveals an alert male patient in obvious distress secondary to pain. He walks with a slow gait. He favors his left side. There is irritability on transfers from the seated to the standing position. There is irritability with hip range of motion, decreased internal/external rotation of the hip. Straight leg raise testing is negative. Skin around the hip is intact. No erythema, edema, or ecchymosis. Neck is supple without adenopathy or jugular venous distention (JVD). Lungs are clear to auscultation without rales or wheeze. Heart: Regular rate and rhythm. Abdomen: Bowel sounds are present. Current vital signs: Height 67 inches, weight 248 pounds, temperature 97.8, blood pressure 120/80, pulse 63, respirations 17. Chest x-ray: No acute cardiopulmonary disease process noted. EKG: Sinus bradycardia with first-degree atrioventricular (AV) block. Glucose 92, BUN 25, creatinine 1.5, potassium 3.9, sodium 142. Sedimentation rate of 27, WBC count of 10.1, RBC count of 4.7, hemoglobin 14.0, hematocrit 42.5. PT 13.4, INR 1.01. IMPRESSION: End-stage osteoarthritis of the left hip. PLAN: He is consented by Dr. Vega for a left total hip arthroplasty.
[~2019-03-14] VITALS: Ht 170.2 cm; Wt 114.8 kg
[2019-03-14] MEDS ORDERED: LIDOCAINE 1% MDV 20ML VIAL SQ PRN (06:00)
[2019-03-14] MEDS ORDERED: PREGABALIN 50 MG CAP (LYRICA) PO ONE (07:00)
[2019-03-14] MEDS ORDERED: BUPIVACAINE/EPIN 0.25% 30 ML VIAL As Ordered ONE (07:00)
[2019-03-14] MEDS ORDERED: CelecoXIB 400 MG CAP PO ONE (07:00)
[2019-03-14] MEDS ORDERED: PERCOCET 5MG/325MG TAB PO ONE (07:00)
[2019-03-14] MEDS ORDERED: LR 1,000 ML IV ONE (07:00)
[2019-03-14] MEDS ORDERED: TRANEXAMIC ACID 100 MG/ML 10ML VIAL As Ordered ONE (07:01)
[2019-03-14] MEDS ORDERED: EPINEPHrine INJ 1 MG/ML 1ML AMP As Ordered ONE ×2 (07:01→07:06)
[2019-03-14] MEDS ORDERED: ceFAZolin 1GM INJ (J0690 PER 500MG) As Ordered ONE (07:01)
[2019-03-14] MEDS ORDERED: BUPIVACAINE HCL 0.5% 30 ML VIAL As Ordered ONE (07:01)
[2019-03-14] MEDS ORDERED: BUPIVACAINE LIPOSOME/PF 1.3% 20ML VIAL (13.3MG/ML)(EXPAREL)(C9290 PER1MG) As Ordered ONE (07:02)
[2019-03-14] MEDS ORDERED: PROPOFOL 200 MG/20 ML VIAL As Ordered ONE ×2 (07:04→08:10)
[2019-03-14] MEDS ORDERED: ROCURONIUM BROMIDE 50 MG/5 ML VIAL As Ordered ONE (07:04)
[2019-03-14] MEDS ORDERED: ONDANSETRON 4MG/2ML VIAL (J2405) As Ordered ONE (07:04)
[2019-03-14] MEDS ORDERED: LIDOCAINE 2% INJ 100 MG/5 ML SDV (FOR ANES.) As Ordered ONE (07:04)
[2019-03-14] MEDS ORDERED: fentaNYL 100 MCG/2 ML INJECTION (J3010) As Ordered ONE (07:04)
[2019-03-14] MEDS ORDERED: MIDAZOLAM INJ 2 MG/2 ML VIAL (J2250) As Ordered ONE (07:04)
[2019-03-14] MEDS ORDERED: dexameTHASONE 4 MG/ML 1ML VIAL (J1100) As Ordered ONE (07:04)
[2019-03-14] MEDS ORDERED: NEOSTIGMINE 10 MG/10 ML VIAL (J2710) As Ordered ONE (07:04)
[2019-03-14] MEDS ORDERED: GLYCOPYRROLATE INJ 0.2 MG/ML 2 ML VIAL As Ordered ONE (07:04)
[2019-03-14] MEDS ORDERED: ePHEDrine SULFATE 25 MG/5 ML(5MG/ML) SYRINGE As Ordered ONE (08:51)
[2019-03-14] MEDS ORDERED: PHENYLephrine HCL 500 MCG/5 ML (100MCG/ML) SYRINGE (J2370) As Ordered ONE (08:53)
[2019-03-14] MEDS ORDERED: LR 1,000 ML IV SCH (11:15)
[2019-03-14] MEDS ORDERED: ONDANSETRON 4MG/2ML VIAL (J2405) IV PRN (11:15)
[2019-03-14] MEDS ORDERED: fentaNYL 100 MCG/2 ML INJECTION (J3010) IV PRN (11:15)
[2019-03-14] MEDS ORDERED: PERCOCET 5MG/325MG TAB PO PRN ×2 (11:15→12:00)
[2019-03-14] MEDS ORDERED: METOCLOPRAMIDE INJ 10MG/2ML VIAL (J2765) IV PRN (11:15)
[2019-03-14] MEDS ORDERED: ACETAMINOPHEN TAB 650MG DOSE (2X325MG) PO PRN ×2 (11:15→12:15)
[2019-03-14] MEDS ORDERED: HYDROMORPHONE HCL 0.5 MG/ 0.5 ML SYRINGE (J1170 PER 1) IV PRN (11:30)
[2019-03-14] MEDS ORDERED: D5W/LR 1,000 ML IV SCH (11:30)
[2019-03-14 11:51] VITALS: BP 141/88
[2019-03-14] MEDS ORDERED: FLEET ENEMA PR PRN (12:15)
[2019-03-14 12:21] VITALS: BP 135/85
--- NOTE | 2019-03-14 13:05 | REP ---
PORTABLE AP AND LATERAL LEFT HIP, TWO VIEWS: HISTORY: Postoperative. The patient is status post left total hip replacement. There is no acute fracture or dislocation. IMPRESSION: The patient is status post left total hip replacement. There is anatomic alignment. Electronically Signed by Nacho Dennison MD 03/14/2019 01:16 P
[2019-03-14 13:36] VITALS: BP 129/78
--- NOTE | 2019-03-14 13:58 | CR ---
DATE OF CONSULTATION: 03/14/2019 REQUESTING PHYSICIAN: Dr. Joseph Vega CONSULTING PHYSICIAN: Dr. Dominguez REASON FOR CONSULT: Medical management. HISTORY OF PRESENT ILLNESS: The patient is a 68-year-old white male with several chronic medical conditions who has been admitted to the hospital due to worsening left hip osteoarthritis. He was admitted to Dr. Vega's service and he underwent a hip replacement. Medicine was called for consultation regarding his medical management. REVIEW OF SYSTEMS: Denies fever. No chills. No headache. No blurred vision. No shortness of breath. No chest pain. No abdominal pain. No diarrhea. No tingling, numbness or weakness of his arms or lower extremities. All other systems reviewed, but negative. PAST MEDICAL HISTORY: 1. Hypertension. 2. Essential tremor. 3. History of Lyme disease. 4. Osteoarthritis of both hips. PAST SURGICAL HISTORY: 1. Surgery for prostate cancer. 2. Left ankle fracture surgical repair. 3. Appendectomy. FAMILY HISTORY: Both parents and had history of heart disease. SOCIAL HISTORY: Denies tobacco use. Denies alcohol abuse. Denies illicit drug abuse. He is living at home with his . He is a full code. MEDICATIONS: - allopurinol 300 mg once a day - aspirin 81 mg by mouth once a day - Coreg 12.5 mg by mouth twice a day - Neurontin 400 mg by mouth three times a day - doxazosin 2 mg once a day - hydralazine 50 mg once a day - Singulair 10 mg by mouth daily - potassium chloride 8 mEq once a day - torsemide 100 mg by mouth daily - vitamin D 1000 units two caps once a day PHYSICAL EXAMINATION: Vitals: Temperature 98. Heart rate 70. Respirations 16. Blood pressure 120/80. Oxygen saturation 98% on room air. General: He is awake, alert and oriented times three. He is not in acute distress. He is sitting in bed eating his lunch. HEENT: Atraumatic. Pupils equal round and react to light. No jaundice. Extraocular muscles intact. Ear, nose and throat normal. Mouth mucous membranes not dry. Neck: No jugular venous distention (JVD). No bruits. Lungs: Clear. No wheezes, no crackles. Heart: S1 and S2, regular. No murmur. Abdomen: Soft. Positive bowel sounds. Nontender. Lower Extremities: No edema in bilateral lower extremities. Neurologic: Nonfocal. Psychologic: No acute psychosis. Skin: No rash. IMPRESSION: 1. Status post left hip replacement for end stage osteoarthritis. 2. History of hypertension. 3. Essential tremor. 4. Chronic pain. RECOMMENDATION: Currently he is medically stable and will resume most of his home medications. Also will give him a spirometer to prevent atelectasis or pneumonia. Deep vein thrombosis (DVT) prophylaxis is per orthopedic service. Medicine service will followup. SLIM
[2019-03-14 14:58] VITALS: BP 129/79
--- NOTE | 2019-03-14 15:06 | RO ---
DATE OF SURGERY: 03/14/2019 PREOPERATIVE DIAGNOSIS: Left hip osteoarthritis. POSTOPERATIVE DIAGNOSIS: Left hip osteoarthritis. PROCEDURE: Left total hip replacement. SURGEON: Joseph Vega MD ASSISTING: Lloyd Thompson PA-C ANESTHESIA: Spinal. ESTIMATED BLOOD LOSS: Less than 50 mL, replaced with crystalloid. No complications. COMPONENTS USED: Included DePuy [place] hip system size 7 femoral component, +5 neck length, 36 mm stainless femoral head high offset, 56 mm shell, 36 mm liner. [place] hole eliminator. INDICATIONS: Progressive discomfort in the left hip. The patient has elected for arthroplasty. Radiographic evidence of [id number] arthritis in the left hip. CONSENT: Reviewed in detail, including a blanca discussion of the pathology involved, procedure proposed, alternatives including doing nothing, and risks including but not limited to pain, failure, infection, bleeding, blood loss, incomplete relief of symptoms, dislocation, blood clots, and other issues. The patient agrees to proceed. OPERATIVE COURSE: Identified in holding area, site and side verified, brought to the operating room. Once the spinal was administered, he was positioned in the lateral decubitus position for exposure of the left hip for arthroplasty for a modified Hardinge approach. I stood on the patient's posterior. Mr. Thompson stood on the patient's anterior. Once he was sterilely prepped and draped in the usual fashion, we began the case. The line of the incision was infiltrated with 0.25% Marcaine with epinephrine and made with the 10 blade, developed down through skin and subcuticular tissues to the lateral fascia. The lateral fascia was split in line with its fibers, allowing exposure of the abductor mechanism. Split was created at the anterior one-third position of the abductor mechanism, and then dissection continued along the femoral neck and split the acetabular labrum. The abductor was reflected anteriorly. A tag stitch was placed. The hip capsule was opened. The vastus lateralis was split to allow exposure. The hip was dislocated using the hook with Mr. Thompson manipulating the hip into the sterile bag and applying traction. retractors were placed. Femoral canal entered with the canal-opening reamer followed by finding reamer followed by lateralizing reamer followed by conical reamers through a size 7, which seemed to fit appropriately. Template was installed. Neck cut was made approximately three-quarter fingerbreadths from the lesser trochanter, which was palpated. Femoral head was removed. It was appreciated to be grossly arthritic. The hip was then positioned for a perforation of the acetabulum. Anterior and posterior retractors applied. I removed the acetabular labrum using a hot knife while Mr. Thompson helped position the retractors and the hip. Some of the labrum anteriorly was calcified, and this was removed using [place]. Once this was accomplished, hemispherical reamers were utilized beginning at a size 48, and we reamed through a size 55, which seemed to fit appropriately. This was at the floor the acetabulum. There was bleeding bone. The trial acetabular component was then tamped into place using the mallet and the targeting device. I appreciated the acetabular components to ti stable. The trial was removed. Irrigation was accomplished, including irrigation with tranexamic acid (TXA) solution. I also injected Exparel solution around the hip capsule. The nontrial acetabular shell was obtained using the targeting device. We impacted the nontrial shelf to the floor of the acetabulum. We verified we were on the floor of the acetabulum. [place] hole eliminator was installed. Nontrial acetabular liner, size 36 mm, was then placed and tamped into place using nylon impactor. Attention turned to the femoral side. Femoral broaches were then utilized from a size 3, 4 through the size 7 broach. Size 7 broach seemed to fit appropriately and was stable. Neck cut was adequate. We trialed with a +5 neck length high offset 36 mm femoral head. We appreciated good stability with internal rotation and flexion, as well as external rotation and extension. Trial components were then removed. Pulse lavage irrigation was conducted. Additional TXA material was passed into the wound. Nontrial hip stem was obtained, impacted into place. Nontrial femoral head was obtained, impacted into place. Additional Exparel was injected along the fascial planes and subcuticular tissues. The hip was reduced, placed through a range of motion, again appreciated stability and good hip tension. Jazminejames positioned retractors, and I reapproximated the hip capsule, as well as the minimus tissues, followed by reapproximation of the abductor tissue to the cuff of tissue on the greater trochanter using interrupted and mattress stitch. Vastus lateralis repaired using a running stitch. Lateral fascia repaired using interrupted stitch, as well as a running Stratafix stitch. Deep dermis was reapproximated using interrupted stitch. A Prineo dressing was applied. The patient was then moved to the supine position. Moved to the recovery room in good condition. Mr. Thompson was present and participated in the entirety of the case.
[2019-03-14] MEDS ORDERED: PROMETHAZINE INJ 25 MG/ML VIAL (J2550) IV PRN (16:00)
[2019-03-14] MEDS: ceFAZolin SOD 1 GM in D5W MINI-BAG PLUS 50 ML IV SCH (17:10)
[2019-03-14] MEDS: PERCOCET 5MG/325MG TAB PO PRN (20:46)
[2019-03-14 22:00] VITALS: BP 114/83
[2019-03-14] MEDS ORDERED: diazePAM 5 MG TAB PO ONE (22:30)
[2019-03-14] MEDS: GABAPENTIN 400 MG CAP PO SCH (22:36)
[2019-03-14] MEDS: POTASSIUM CHLORIDE 10 MEQ SR TABLET PO SCH (22:36)
[2019-03-14] MEDS: CARVedilol 12.5 MG TAB PO SCH (22:37)
[2019-03-15] MEDS: ceFAZolin SOD 1 GM in D5W MINI-BAG PLUS 50 ML IV SCH (01:36)
[2019-03-15 02:00] VITALS: BP 131/76
[2019-03-15] MEDS: PERCOCET 5MG/325MG TAB PO PRN (05:29)
[2019-03-15] MEDS: GABAPENTIN 400 MG CAP PO SCH (05:29)
[2019-03-15 06:00] VITALS: BP 132/79
[2019-03-15 06:24] LABS: HEMATOCRIT 37.1 % (42.0-52.0); HEMOGLOBIN 12.3 g/dl (13.5-17.5); MEAN CORPUSCULAR HEMOGLOBIN 30.4 pg (27.0-33.0); MEAN CORPUSCULAR HGB CONC 33.2 g/dl (32.0-36.5); MEAN CORPUSCULAR VOLUME 91.6 fl (80.0-96.0); PLATELET COUNT, AUTOMATED 214 10^3/uL (150-450); RED BLOOD COUNT 4.05 10^6/uL (4.30-6.10); WHITE BLOOD COUNT 15.9 10^3/uL (4.0-10.0)
[2019-03-15] MEDS ORDERED: PERC5TAB12 PO (06:26)
[2019-03-15] MEDS ORDERED: XARE10TA PO (06:26)
[2019-03-15] MEDS ORDERED: DOCUSATE SODIUM 100 MG CAP PO SCH (09:00)
[2019-03-15] MEDS ORDERED: DOXAZOSIN MESYLATE 1 MG TAB PO SCH (09:00)
[2019-03-15] MEDS ORDERED: METAMUCIL (PSYLLIUM) PACKET PO SCH (09:00)
[2019-03-15] MEDS ORDERED: ALLOPURINOL 300 MG TAB PO SCH (09:00)
[2019-03-15] MEDS ORDERED: VITAMIN D 1,000 INTERNATIONAL UNITS TABLET PO SCH (09:00)
[2019-03-15] MEDS ORDERED: MONTELUKAST 10 MG TAB PO SCH (09:00)
[2019-03-15] MEDS ORDERED: TORSEMIDE 100 MG TAB PO SCH (09:00)
[2019-03-15] MEDS: POTASSIUM CHLORIDE 10 MEQ SR TABLET PO SCH (09:03)
[2019-03-15] MEDS: CARVedilol 12.5 MG TAB PO SCH (09:04)
[2019-03-15 09:59] VITALS: BP 132/79
[2019-03-15 10:00] VITALS: BP 127/64
[2019-03-15] MEDS ORDERED: RIVAROXABAN 10 MG TAB (XARELTO) PO SCH (18:00)
== END 2019-03-15 11:30 | disposition home or self-care (01) | DRG 470 ==
LOC: M OR 05:41 → M MS5PR 11:30
PROVIDERS: ADMIT Orthopaedic Surgery; ATTEND Orthopaedic Surgery
PROC: 0SRB02A Replacement of Left Hip Joint with Metal on Polyethylene Synthetic Substitute, Uncemented, Open Approach (ICD-10-PCS; principal; 2019-03-14 07:30)
DX: M16.12 Unilateral primary osteoarthritis, left hip (principal); Z79.899 Other long term (current) drug therapy; Z79.82 Long term (current) use of aspirin; I10 Essential (primary) hypertension; J44.9 Chronic obstructive pulmonary disease, unspecified; R25.1 Tremor, unspecified; Z85.46 Personal history of malignant neoplasm of prostate

== ENCOUNTER → 2019-11-12 | Outpatient (CLI) | payer MEDICARE ==
[~2019-11-12] MED LIST changes: +FLUO20CA20 PO; -FLUO20CA8 PO; +MM S100C PO; +PERC5TAB12 PO; -STOO100C PO; +XARE10TA PO
== END ==
LOC: M PLALAB 13:50
PROVIDERS: ATTEND Nurse Practitioner Women's Health
DX: Z85.46 Personal history of malignant neoplasm of prostate (principal)

== ENCOUNTER → 2020-11-07 | Outpatient (CLI) | payer MEDICARE ==
[~2020-11-07] MED LIST changes: +MONT10TA10 PO; -MONT10TA2 PO; -ROPI1TAB PO; +ROPI1TAB3 PO
== END ==
LOC: M LAB 10:10
PROVIDERS: ATTEND Nurse Practitioner Women's Health
DX: Z85.46 Personal history of malignant neoplasm of prostate (principal)

== ENCOUNTER → 2021-05-08 | Outpatient (CLI) | payer MEDICARE ==
[~2021-05-08] MED LIST changes: +GABA-283 PO; -GABA-845 PO
[2021-05-08 08:33] LABS: HEMATOCRIT 41.5 % (42.0-52.0); HEMOGLOBIN 13.5 g/dl (13.5-17.5); MEAN CORPUSCULAR HGB CONC 32.5 g/dl (32.0-36.5); MEAN CORPUSCULAR VOLUME 95.2 fl (80.0-96.0); PLATELET COUNT, AUTOMATED 190 10^3/uL (150-450); RED BLOOD COUNT 4.36 10^6/uL (4.30-6.10); WHITE BLOOD COUNT 6.6 10^3/uL (4.0-10.0)
[2021-05-08 09:14] LABS: ALBUMIN 3.7 GM/DL (3.2-5.2); ALT/SGPT 21 U/L (12-78); BILIRUBIN,TOTAL 0.6 MG/DL (0.2-1.0); BLOOD UREA NITROGEN 28 MG/DL (7-18); CALCIUM LEVEL 9.2 MG/DL (8.8-10.2); CARBON DIOXIDE LEVEL 24 MEQ/L (21-32); CHLORIDE LEVEL 109 MEQ/L (98-107); CHOLESTEROL LEVEL 202 MG/DL (<200); CHOLESTEROL RISK RATIO 5.771 (<5); CREATININE FOR GFR 1.47 MG/DL (0.70-1.30); GLOMERULAR FILTRATION RATE 50.3 (>42); GLUCOSE, FASTING 96 MG/DL (70-100); HDL CHOLESTEROL 35 MG/DL (>40); LDL CHOLESTEROL 121 MG/DL (<100); NON-HDL-C 167 MG/DL; PROSTATIC SPECIFIC AG MONITOR < 0.01 NG/ML (< 4.00); SODIUM LEVEL 142 MEQ/L (136-145); TOTAL PROTEIN 6.9 GM/DL (6.4-8.2); TRIGLYCERIDES LEVEL 231 MG/DL (<150)
[2021-05-08 09:16] LABS: TESTOSTERONE 315 NG/DL (241-827)
[2021-05-08 10:16] LABS: HEMOGLOBIN A1c 5.3 %
== END ==
LOC: M LAB 07:38
PROVIDERS: ATTEND Family Medicine
DX: E03.9 Hypothyroidism, unspecified (principal); R53.83 Other fatigue; I10 Essential (primary) hypertension; Z79.899 Other long term (current) drug therapy

== ENCOUNTER → 2021-06-01 | Outpatient (CLI) | payer MEDICARE ==
[~2021-06-01] MED LIST changes: +FLUO-96 PO; -FLUO20CA20 PO; +ISOVUE-300 61% 50ML VIAL As Ordered ONE; +LIDOCAINE 1% MDV 20ML VIAL As Ordered ONE; -MONT10TA10 PO; +MONT10TA97 PO; +methylPREDNISolone SUSP 40MG/ML 1ML VIAL (DEPO MEDROL) As Ordered ONE
== END ==
LOC: M RADPRO 13:42
PROVIDERS: ATTEND Physician Assistant
DX: M16.11 Unilateral primary osteoarthritis, right hip (principal)
CPT/HCPCS: 20610; 77002; J1030; Q9967

== ENCOUNTER → 2021-06-08 | Outpatient (CLI) | payer MEDICARE ==
[~2021-06-08] MED LIST changes: -FLUO-96 PO; +FLUO20CA20 PO; -ISOVUE-300 61% 50ML VIAL As Ordered ONE; -LIDOCAINE 1% MDV 20ML VIAL As Ordered ONE; +MONT10TA10 PO; -MONT10TA97 PO; -methylPREDNISolone SUSP 40MG/ML 1ML VIAL (DEPO MEDROL) As Ordered ONE
[2021-06-08 12:27] LABS: HEMOGLOBIN 12.9 g/dl (13.5-17.5); MEAN CORPUSCULAR HEMOGLOBIN 30.8 pg (27.0-33.0); MEAN CORPUSCULAR HGB CONC 33.1 g/dl (32.0-36.5); MEAN CORPUSCULAR VOLUME 93.1 fl (80.0-96.0); PLATELET COUNT, AUTOMATED 144 10^3/uL (150-450); RED BLOOD COUNT 4.19 10^6/uL (4.30-6.10); WHITE BLOOD COUNT 10.4 10^3/uL (4.0-10.0)
--- NOTE | 2021-06-08 12:38 | REP ---
INDICATION: HTN/ LABS 1ST, EKG 2ND, RAD 3RD. COMPARISON: Comparison chest x-ray Mar 05 2019. TECHNIQUE: Two views.. FINDINGS: The lungs are well inflated and free of infiltrate. The pleural angles are sharp. The heart size is borderline.. Pulmonary vasculature is not increased. No significant bony abnormality is seen. IMPRESSION: No acute disease.. <Electronically signed by Enrique Brown > 06/08/21 [id number]
[2021-06-08 12:56] LABS: ALBUMIN 3.2 GM/DL (3.2-5.2); ALT/SGPT 26 U/L (12-78); BILIRUBIN,TOTAL 0.7 MG/DL (0.2-1.0); BLOOD UREA NITROGEN 48 MG/DL (7-18); CALCIUM LEVEL 8.6 MG/DL (8.8-10.2); CARBON DIOXIDE LEVEL 26 MEQ/L (21-32); CHLORIDE LEVEL 104 MEQ/L (98-107); CHOLESTEROL LEVEL 120 MG/DL (<200); CHOLESTEROL RISK RATIO 4.444 (<5); CREATININE FOR GFR 1.94 MG/DL (0.70-1.30); GLOMERULAR FILTRATION RATE 36.5 (>42); GLUCOSE, FASTING 92 MG/DL (70-100); HDL CHOLESTEROL 27 MG/DL (>40); LDL CHOLESTEROL 53 MG/DL (<100); NON-HDL-C 93 MG/DL; POTASSIUM SERUM 3.8 MEQ/L (3.5-5.1); PROSTATIC SPECIFIC AG MONITOR < 0.01 NG/ML (< 4.00); SODIUM LEVEL 137 MEQ/L (136-145); TESTOSTERONE 198 NG/DL (241-827); TOTAL PROTEIN 6.5 GM/DL (6.4-8.2); TRIGLYCERIDES LEVEL 201 MG/DL (<150)
[2021-06-08 14:03] LABS: HEMOGLOBIN A1c 5.6 %
--- NOTE | 2021-06-08 16:18 | ECGEPIP ---
[facility] Test Date: 2021-06-08 Pat Name: TARIK REA Department: Room: - Gender: Male Online Services Manager: MARCO ANTONIO : 1950 Requested By: Simon Willett Order Number: [id number] Reading MD: Chele Fish Measurements Intervals [place] Rate: 58 P: 0 LA: 156 QRS: 18 QRSD: 86 T: 36 QT: 438 QTc: 429 Interpretive Statements Sinus bradycardia, Otherwise within normal limits. [place] interval compared with 03/05/2019. Electronically Signed on 06-08-2021 16:18:13 EDT by Chele Fish
== END ==
LOC: M LAB 11:24
PROVIDERS: ATTEND Family Medicine
DX: R00.1 Bradycardia, unspecified (principal); E03.9 Hypothyroidism, unspecified; I10 Essential (primary) hypertension; R53.83 Other fatigue; Z79.899 Other long term (current) drug therapy

== ENCOUNTER → 2021-06-17 | Outpatient (CLI) | payer MEDICARE | LOC: M LAB 10:25 | PROVIDERS: ATTEND Family Medicine | DX: R53.83 Other fatigue (principal); E03.9 Hypothyroidism, unspecified ==

== ENCOUNTER → 2021-07-29 | Outpatient (CLI) | payer MEDICARE ==
[2021-07-29 13:58] LABS: HEMATOCRIT 40.8 % (42.0-52.0); HEMOGLOBIN 13.6 g/dl (13.5-17.5); MEAN CORPUSCULAR HEMOGLOBIN 31.1 pg (27.0-33.0); MEAN CORPUSCULAR HGB CONC 33.3 g/dl (32.0-36.5); MEAN CORPUSCULAR VOLUME 93.2 fl (80.0-96.0); PLATELET COUNT, AUTOMATED 250 10^3/uL (150-450); RED BLOOD COUNT 4.38 10^6/uL (4.30-6.10); WHITE BLOOD COUNT 10.7 10^3/uL (4.0-10.0)
== END ==
LOC: M LAB 12:42
PROVIDERS: ATTEND Family Medicine
DX: Z01.812 Encounter for preprocedural laboratory examination (principal); Z79.899 Other long term (current) drug therapy

== ENCOUNTER → 2021-12-15 | Outpatient (CLI) | payer MEDICARE ==
[~2021-12-15] MED LIST changes: +FLUO-96 PO; -FLUO20CA20 PO; -MONT10TA10 PO; +MONT10TA97 PO
[2021-12-15 10:36] LABS: HEMATOCRIT 41.1 % (42.0-52.0); HEMOGLOBIN 13.2 g/dl (13.5-17.5); MEAN CORPUSCULAR HGB CONC 32.1 g/dl (32.0-36.5); PLATELET COUNT, AUTOMATED 269 10^3/uL (150-450); RED BLOOD COUNT 4.89 10^6/uL (4.30-6.10); WHITE BLOOD COUNT 10.2 10^3/uL (4.0-10.0)
[2021-12-15 11:18] LABS: ALBUMIN 3.8 GM/DL (3.2-5.2); ALT/SGPT 18 U/L (12-78); BILIRUBIN,TOTAL 0.7 MG/DL (0.2-1.0); BLOOD UREA NITROGEN 35 MG/DL (7-18); CARBON DIOXIDE LEVEL 28 MEQ/L (21-32); CHLORIDE LEVEL 105 MEQ/L (98-107); CHOLESTEROL LEVEL 218 MG/DL (<200); CREATININE FOR GFR 1.67 MG/DL (0.70-1.30); GLOMERULAR FILTRATION RATE 43.3 (>42); GLUCOSE, FASTING 91 MG/DL (70-100); HDL CHOLESTEROL 42 MG/DL (>40); LDL CHOLESTEROL 148 MG/DL (<100); NON-HDL-C 176 MG/DL; PROSTATIC SPECIFIC AG MONITOR < 0.01 NG/ML (< 4.00); SODIUM LEVEL 141 MEQ/L (136-145); TOTAL 25(OH) VITAMIN D 22.8 NG/ML (30.0-100.0); TOTAL PROTEIN 6.9 GM/DL (6.4-8.2); TRIGLYCERIDES LEVEL 138 MG/DL (<150); VITAMIN B12 LEVEL 491 PG/ML (247-911)
[2021-12-15 11:21] LABS: HEMOGLOBIN A1c 5.4 %
== END ==
LOC: M RAD 09:13
PROVIDERS: ATTEND Family Medicine
DX: I10 Essential (primary) hypertension (principal); R97.20 Elevated prostate specific antigen [PSA]

== ENCOUNTER → 2022-10-06 | Outpatient (CLI) | payer OTHER ==
[2022-10-06 15:44] LABS: BASO # 0.1 10^3/uL (0.0-0.2); BASO % 0.7 % (0.0-1.0); EOS # 0.3 10^3/uL (0.0-0.5); EOS % 3.2 % (0.0-3.0); HEMATOCRIT 40.9 % (42.0-52.0); HEMOGLOBIN 13.2 g/dl (13.5-17.5); LYMPH # 2.7 10^3/uL (1.5-5.0); LYMPH % 27.5 % (24.0-44.0); MEAN CORPUSCULAR HEMOGLOBIN 30.3 pg (27.0-33.0); MEAN CORPUSCULAR HGB CONC 32.3 g/dl (32.0-36.5); MONO # 0.8 10^3/uL (0.0-0.8); MONO % 8.6 % (2.0-8.0); NEUTROPHILS # 5.8 10^3/uL (1.5-8.5); NEUTROPHILS % 59.4 % (36.0-66.0); PLATELET COUNT, AUTOMATED 247 10^3/uL (150-450); RED BLOOD COUNT 4.35 10^6/uL (4.30-6.10); WHITE BLOOD COUNT 9.8 10^3/uL (4.0-10.0)
[2022-10-06 15:57] LABS: URIC ACID 6.2 MG/DL (3.7-9.2)
[2022-10-06 16:01] LABS: C REACTIVE PROTEIN QUANTITATIV 0.4 MG/DL (<1.0)
[2022-10-06 16:02] LABS: RHEUMATOID FACTOR QUANT 5.3 IU/ML (<14)
[2022-10-06 17:04] LABS: ERYTHROCYTE SEDIMENTATION RATE 17 mm/hr (0-20)
[2022-10-08 10:08] LABS: ANTINUCLEAR ANTIBODIES DIRECT Negative (Negative)
== END ==
LOC: M LAB 14:50
PROVIDERS: ATTEND Orthopaedic Surgery
DX: M51.36 Other intervertebral disc degeneration, lumbar region (principal)

== ENCOUNTER → 2022-12-31 | Outpatient (CLI) | payer MEDICARE | LOC: M PLAIMG 10:47 | PROVIDERS: ATTEND Psychiatry & Neurology Neurology | DX: R26.89 Other abnormalities of gait and mobility (principal); M62.81 Muscle weakness (generalized) ==

== ENCOUNTER → 2023-09-19 | Outpatient (CLI) | payer OTHER ==
[~2023-09-19] MED LIST changes: -DOXA2TAB3 PO; +DOXA2TAB61 PO; -GABA-283 PO; +GABA-284 PO; -ROPI1TAB3 PO; +ROPI1TAB73 PO
[2023-09-19 11:29] LABS: PLATELET COUNT, AUTOMATED 231 10^3/uL (150-450)
[2023-09-19 11:38] LABS: INR 1.03; PROTHROMBIN TIME 13.2 SECONDS (12.5-14.5)
[2023-09-19 11:39] LABS: PARTIAL THROMBOPLASTIN TIME 32.7 SECONDS (24.8-34.2)
[2023-09-19 11:43] LABS: COLLAGEN EPINEPHRINE 101 SECONDS (74-162)
== END ==
LOC: M LAB 10:58
PROVIDERS: ATTEND Physician Assistant
DX: Z01.818 Encounter for other preprocedural examination (principal)

== ENCOUNTER → 2024-02-10 | Outpatient (CLI) | payer MEDICARE, OTHER | LOC: M RAD 08:23 | PROVIDERS: ATTEND Family Medicine | DX: J40 Bronchitis, not specified as acute or chronic (principal) ==

== ENCOUNTER 2025-02-11 10:34 | Day surgery (SDC) | payer MEDICARE ==
[~2025-02-11] VITALS: Ht 170.2 cm; Wt 107.1 kg
[~2025-02-11 10:34] MED LIST changes: +ALLO300T2 PO; +FLUO-365 PO; +INDO50CA91 PO; +PRAV20TA2 PO; +TORS20TA2 PO; +TRAZ-252 PO; +VITA200016 PO
[2025-02-11] MEDS ORDERED: propofoL 200 MG/20 ML VIAL As Ordered ONE (11:58)
[2025-02-11] MEDS ORDERED: ONDANSETRON 4MG 2ML VIAL As Ordered ONE (11:58)
[2025-02-11] MEDS ORDERED: ACETAMINOPHEN 1000MG/100ML IV BAG As Ordered ONE (11:58)
[2025-02-11] MEDS ORDERED: LIDOCAINE 2% 100MG/5ML SDV (FOR ANES.) As Ordered ONE (11:58)
[2025-02-11] MEDS ORDERED: fentaNYL 100 MCG/2 ML INJECTION As Ordered ONE (11:58)
[2025-02-11] MEDS: LR 1,000 ML IV SCH (12:16)
[2025-02-11] MEDS: ceFAZolin SOD 2 GM IV ONCE IV ONE (12:30)
[2025-02-11] MEDS: BACITRACIN OINTMENT 30GM TUBE As Ordered ONE (13:12)
[2025-02-11] MEDS ORDERED: ONDANSETRON 4MG 2ML VIAL IV PRN (13:20)
[2025-02-11] MEDS ORDERED: oxyCODONE 5MG TAB PO PRN (13:20)
[2025-02-11] MEDS ORDERED: HYDROMORPHONE HCL 0.5 MG/ 0.5 ML SYRINGE IV PRN (13:20)
[2025-02-11] MEDS ORDERED: fentaNYL 100 MCG/2 ML INJECTION IV PRN (13:20)
[2025-02-11] MEDS ORDERED: OXYC1TAB23 PO (13:47)
[2025-02-11] MEDS ORDERED: PERCOCET 5MG/325MG TAB PO PRN (14:20)
[2025-02-11 14:25] VITALS: BP 167/82; TEMP 97.4; O2SAT 98
== END 2025-02-11 14:50 | disposition home or self-care (01) ==
LOC: M SDC 10:34
PROVIDERS: ATTEND Urology
DX: N47.1 Phimosis (principal); J44.9 Chronic obstructive pulmonary disease, unspecified; N28.9 Disorder of kidney and ureter, unspecified; M10.9 Gout, unspecified; Z85.46 Personal history of malignant neoplasm of prostate; Z85.828 Personal history of other malignant neoplasm of skin; Z79.899 Other long term (current) drug therapy; Z90.79 Acquired absence of other genital organ(s); Z90.49 Acquired absence of other specified parts of digestive tract; Z88.1 Allergy status to other antibiotic agents; Z88.8 Allergy status to other drugs, medicaments and biological substances; Z87.891 Personal history of nicotine dependence
CPT/HCPCS: 54161; 88304; J0131; J0690; J2405; J3010

== ENCOUNTER 2025-04-30 17:41 | Inpatient (IN) | payer MEDICARE ==
[~2025-04-30] VITALS: Ht 170.2 cm; Wt 104.5 kg
[~2025-04-30 17:41] MED LIST changes: -PRAV20TA2 PO; +PRAV20TA78 PO
[2025-04-30 18:49] LABS: BASO # 0.1 10^3/uL (0.0-0.2); BASO % 0.6 % (0.0-1.0); EOS # 0.3 10^3/uL (0.0-0.5); EOS % 2.9 % (0.0-3.0); LYMPH # 2.2 10^3/uL (1.5-5.0); LYMPH % 22.3 % (24.0-44.0); MONO # 0.7 10^3/uL (0.0-0.8); MONO % 7.3 % (2.0-8.0); NEUTROPHILS # 6.5 10^3/uL (1.5-8.5); NEUTROPHILS % 66.5 % (36.0-66.0); PLATELET COUNT, AUTOMATED 209 10^3/uL (150-450)
[2025-04-30 19:00] LABS: ALT/SGPT 20 U/L (7.0-40); AST/SGOT 23 U/L (<34); CALCIUM LEVEL 9.2 MG/DL (8.3-10.6); CARBON DIOXIDE LEVEL 24 MMOL/L (20-31); CHLORIDE LEVEL 107 MMOL/L (98-107); CREATININE FOR GFR 1.59 MG/DL (0.70-1.30); GLOMERULAR FILTRATION RATE 45.0 (>42); POTASSIUM SERUM 3.9 MMOL/L (3.5-5.1); SODIUM LEVEL 144 MMOL/L (136-145)
[2025-04-30] MEDS ORDERED: ISOVUE-370 76% 100 ML VIAL As Ordered ONE (19:25)
[2025-04-30 20:04] LABS: MAGNESIUM LEVEL 2.2 MG/DL (1.8-2.4)
[2025-04-30 20:05] LABS: CK-MB VALUE MASS < 1.0 NG/ML (<3.6)
[2025-04-30 20:10] LABS: CPK CREATINE PHOSPHOKINASE 49 U/L (46-171)
[2025-04-30 20:40] LABS: CK-MB VALUE MASS < 1.0 NG/ML (<3.6)
[2025-04-30 20:41] LABS: CPK CREATINE PHOSPHOKINASE 48 U/L (46-171)
[2025-05-01] MEDS: ACETAMINOPHEN *IV* 1,000 MG in IV 1 EA IV ONE (00:27)
[2025-05-01] MEDS ORDERED: MOM 30 ML SUSPENSION UDC PO PRN (02:25)
[2025-05-01] MEDS ORDERED: MAALOX 30 ML SUSP *UDC PO PRN (02:25)
[2025-05-01] MEDS ORDERED: ACETAMINOPHEN 325 MG TAB PO PRN (04:00)
[2025-05-01 06:36] LABS: PLATELET COUNT, AUTOMATED 184 10^3/uL (150-450)
[2025-05-01 07:29] LABS: ALT/SGPT 18.0 U/L (7.0-40); AST/SGOT 15.0 U/L (<34); CALCIUM LEVEL 9.0 MG/DL (8.3-10.6); CARBON DIOXIDE LEVEL 26.0 MMOL/L (20-31); CHLORIDE LEVEL 109.0 MMOL/L (98-107); CREATININE FOR GFR 1.53 MG/DL (0.70-1.30); GLOMERULAR FILTRATION RATE 47.1 (>42); POTASSIUM SERUM 3.8 MMOL/L (3.5-5.1); SODIUM LEVEL 146.0 MMOL/L (136-145)
[2025-05-01] MEDS ORDERED: ACET-897 PO (07:40)
[2025-05-01] MEDS ORDERED: HOME MED LIST COMPLETE! XX SCH (07:40)
[2025-05-01] MEDS: HEPARIN SOD 5000 UNITS/ML 1 ML VIAL/SYRINGE SC SCH (09:00)
[2025-05-01] MEDS: DOCUSATE SODIUM 100 MG CAPSULE PO SCH (09:00)
[2025-05-01 11:30] VITALS: BP 147/80; TEMP 96.8; O2SAT 96
[2025-05-01 12:00] VITALS: BP 130/80; TEMP 97; O2SAT 96
[2025-05-01 15:59] LABS: FREE T4 0.91 NG/DL (0.89-1.76)
[2025-05-01] MEDS: NS 500 ML IV ONE (18:40)
[2025-05-01 20:35] VITALS: BP 139/77; TEMP 97.3; O2SAT 97
[2025-05-01] MEDS: POTASSIUM CHLORIDE 10MEQ SR TABLET PO SCH (21:04)
[2025-05-01] MEDS: INDOMETHACIN 25 MG CAP PO SCH (21:05)
[2025-05-01 21:43] LABS: KETONE, URINE AUTO RFX NEGATIVE (NEGATIVE); LEUKOCYTE ESTERASE UR AUTO RFX NEGATIVE (NEGATIVE); NITRITE, URINE AUTO RFX NEGATIVE (NEGATIVE); RBC, URINE AUTO RFX 0 /HPF (0-3); SQUAM EPITHELIAL CELL UR AURFX 0 /HPF (0-6); WBC, URINE AUTO RFX 1 /HPF (0-3)
[2025-05-02 03:57] VITALS: BP 139/77; TEMP 97; O2SAT 94
[2025-05-02 03:58] VITALS: TEMP 97.4
[2025-05-02 06:57] VITALS: O2SAT 94
[2025-05-02 09:01] LABS: PLATELET COUNT, AUTOMATED 192 10^3/uL (150-450)
[2025-05-02] MEDS: PRAVASTATIN 20 MG TAB PO SCH (09:19)
[2025-05-02] MEDS: FLUoxetine 20 MG CAP PO SCH (09:20)
[2025-05-02] MEDS: MONTELUKAST 10 MG TAB PO SCH (09:20)
[2025-05-02 09:27] LABS: CALCIUM LEVEL 8.6 MG/DL (8.3-10.6); CARBON DIOXIDE LEVEL 26.0 MMOL/L (20-31); CHLORIDE LEVEL 109.0 MMOL/L (98-107); CREATININE FOR GFR 1.35 MG/DL (0.70-1.30); GLOMERULAR FILTRATION RATE 54.8 (>42); POTASSIUM SERUM 4.1 MMOL/L (3.5-5.1); SODIUM LEVEL 144.0 MMOL/L (136-145)
[2025-05-02 10:29] VITALS: BP_SYST 118; BP_SYST 142; BP_DIAS 71; BP_DIAS 79; BP_DIAS 80
[2025-05-02 12:50] LABS: CALCIUM LEVEL 8.6 MG/DL (8.3-10.6); CARBON DIOXIDE LEVEL 27.0 MMOL/L (20-31); CHLORIDE LEVEL 106.0 MMOL/L (98-107); CREATININE FOR GFR 1.26 MG/DL (0.70-1.30); GLOMERULAR FILTRATION RATE 59.5 (>42); POTASSIUM SERUM 4.4 MMOL/L (3.5-5.1); SODIUM LEVEL 142.0 MMOL/L (136-145)
[2025-05-02] MEDS ORDERED: TORS10TA3 PO (14:35)
[2025-05-02] MEDS ORDERED: NORV5TAB PO (14:37)
[2025-05-06 16:12] LABS: LYME TOTAL ANTIBODY CIA 2.71 Index (<=0.90)
[2025-05-07 18:32] LABS: LYME AB IGG BY CIA 1.76 Index (<=0.90); LYME AB IGM BY CIA <= 0.90 Index (<=0.90)
== END 2025-05-02 15:25 | disposition home or self-care (01) | DRG 312 ==
LOC: EDBD 17:41 → M ED 17:41 → M ED INP 05-01 02:21 → M MSPAV 05-01 10:53
PROVIDERS: ADMIT Student in an Organized Health Care Education/Training Program; ATTEND General Practice
DX: I95.1 Orthostatic hypotension (principal); I10 Essential (primary) hypertension; R42 Dizziness and giddiness; H53.8 Other visual disturbances; M19.90 Unspecified osteoarthritis, unspecified site; J44.9 Chronic obstructive pulmonary disease, unspecified; R47.9 Unspecified speech disturbances; R26.89 Other abnormalities of gait and mobility; R00.1 Bradycardia, unspecified; Z85.46 Personal history of malignant neoplasm of prostate; Z79.899 Other long term (current) drug therapy; Z88.8 Allergy status to other drugs, medicaments and biological substances

== ENCOUNTER → 2025-05-02 | Outpatient (CLI) | payer MEDICARE ==
[~2025-05-02] MED LIST changes: +ACET-897 PO; +NORV5TAB PO; +TORS10TA3 PO
== END ==
LOC: M EKG 15:56
PROVIDERS: ATTEND General Practice
DX: R55 Syncope and collapse (principal)